=== PATIENT | female | born 1950 | race Caucasian/White ===

== ENCOUNTER 2016-05-06 13:42 | Day surgery (SDC) | payer MEDICARE, OTHER ==
[2016-04-28 16:29] LABS: BUN (BLOOD UREA NITROGEN) 19 MG/DL (6-23); CALCIUM, SERUM 8.9 MG/DL (8.5-10.4); CHLORIDE, SERUM 107 MMOL/L (96-112); CO2 (CARBON DIOXIDE) 26 MMOL/L (24-34); CREATININE 0.68 MG/DL (0.55-1.02); GFR AFRICAN AMERICAN 104 ML/MIN (>=60); GFR NON AFRICAN AMERICAN 90 ML/MIN (>=60); GLUCOSE, SERUM 92 MG/DL (60-99); POTASSIUM, SERUM 4.7 MMOL/L (3.5-5.3); SODIUM, SERUM 144 MMOL/L (135-148)
[2016-04-28 16:34] LABS: BASOPHILS 1.3 %; BASOPHILS ABSOLUTE 0.11 10/3/uL (0.0-0.16); EOSINOPHILS 2.4 %; HEMATOCRIT 42.8 % (36.0-48.0); IMMATURE GRANULOCYTES 0.1 %; IMMATURE GRANULOCYTES ABSOLUTE 0.01 10/3/uL (0.0-0.11); LYMPHOCYTES 23.6 %; LYMPHOCYTES ABSOLUTE 2.01 10/3/uL (0.67-4.30); MANUAL DIFF NO %; MEAN CORPUS HGB CONC 32.7 g/dL (32.0-36.0); MEAN CORPUSCULAR HEMOGLOB 30.2 pg (26.0-34.0); MEAN CORPUSCULAR VOLUME 92.4 fL (80-100); MEAN PLATELET VOLUME 9.9 fL (9.2-13.0); MONOCYTES 7.1 %; NEUTROPHILS 65.5 %; NEUTROPHILS ABSOLUTE 5.58 10/3/uL (2.02-8.40); PLATELET COUNT 359 10/3/uL (150-400); RED CELL COUNT 4.63 10/6/uL (4.0-5.6); WHITE BLOOD CELLS 8.5 10/3/uL (4.5-10.5)
--- NOTE | ~2016-05-06 | OP ---
Record Of Operation [facility] [address] [place]. [address] NAME: FORD SWAN : 46 STATUS : [facility]#: [id number] AGE: 66 ADM/REG DATE : 05/06/16 MR#: [id number] REPORT SERV DATE: 05/07/16 DICTATED BY: STACI LAU DATE: 05/06/16 REPORT STATUS : Draft TRANSCRIBED BY: MODL DATE: 05/06/16 DATE OF PROCEDURE: 05/06/2016 PREOPERATIVE DIAGNOSIS: Bladder tumor. POSTOPERATIVE DIAGNOSIS: Bladder tumor. PROCEDURE PERFORMED: 1. Transurethral resection of bladder tumor (2 cm). 2. Intraoperative instillation of mitomycin C (40 mg diluted in 20 mL). SURGEON: Staci Lau M.D. ANESTHESIA: General. DRAINS: Clay catheter. SPECIMEN: Posterior wall bladder tumor. INDICATION: Ms. Swan is a 66-year-old smoker with several months of intermittent gross hematuria. Office CT scan showed no renal mass, hydronephrosis, or adenopathy. Office cystoscopy showed a 2 cm posterior wall nodule suspicious for high-grade bladder tumor. TECHNIQUE: Informed consent was obtained, received Levaquin perioperatively. She was brought to the operating room. General anesthesia was administered. Genitals and perineum were prepped and draped in the lithotomy position in sterile fashion. Rigid cystoscopy was performed. The urethra was normal. There was a solitary approximately 2 cm papillary sessile nodular tumor on the posterior bladder wall situated at the midline. No other lesions were seen within the bladder. There was mild erythema of the urothelium adjacent to this nodular tumor. The cystoscope was removed. Glycine was used for irrigation. I placed a 24-Comoran resectoscope transurethrally after surgical resection of this tumor was performed down to the level of the detrusor. It is on the high posterior bladder wall resection was difficult. The bed of the resection was sampled using a rigid biopsy forceps to obtain underlying muscle. I then reinserted the resectoscope, a rollerball was utilized to fulgurate the bed of resection. The bladder was drained. Hemostasis was confirmed under low filling pressures. I placed an 18-Comoran Clay catheter and instilled 40 mg of mitomycin C diluted in 20 mL of normal saline. The catheter was plugged. Instillation time was 1830. She will have this for a 1-hour postop dwell time. The B and O suppository was given. She was extubated and taken to the recovery room in satisfactory condition. I plan to leave the Clay catheter for 5 days postop. [facility]/GELA Staci Booth Record Of [address] [address] NAME: FORD SWAN : 46 STATUS : [facility] PAT#: [id number] AGE: 66 ADM/REG DATE : 05/06/16 MR#: [id number] REPORT SERV DATE: 05/07/16 DICTATED BY: STACI LAU DATE: 05/06/16 REPORT STATUS : Draft TRANSCRIBED BY: GELA DATE: 05/06/16 Mary Lau / [id number] CC: Mary Ortiz M.D.
[~2016-05-06 13:42] MED LIST: AMB10 PO; ASAB PO; COZAAR100 MG PO; HYGROTON 25 MG25 MG OR; LISINOPRIL40 MG PO; MOTRIN IB200 MG PO; NITROSTAT0.4 MG SL; PRAVACHOL80 MG PO; TOPXL25 PO; VITAMIN D31000 UNIT PO
== END 2016-05-06 22:13 | disposition home or self-care (01) ==
LOC: SDC 13:42
PROVIDERS: Urology
PROC: 3E0K8GC Introduction of Other Therapeutic Substance into Genitourinary Tract, Via Natural or Artificial Opening Endoscopic (ICD-10-PCS; 2016-05-06)
PROC: 0TBB8ZZ Excision of Bladder, Via Natural or Artificial Opening Endoscopic (ICD-10-PCS; principal; 2016-05-06 15:30)
DX: C67.4 Malignant neoplasm of posterior wall of bladder (principal); I10 Essential (primary) hypertension; E78.00 Pure hypercholesterolemia, unspecified; M19.90 Unspecified osteoarthritis, unspecified site; F17.210 Nicotine dependence, cigarettes, uncomplicated; Z90.710 Acquired absence of both cervix and uterus; Z98.890 Other specified postprocedural states; Z88.0 Allergy status to penicillin; Z88.1 Allergy status to other antibiotic agents; Z88.5 Allergy status to narcotic agent; Z79.82 Long term (current) use of aspirin; Z79.899 Other long term (current) drug therapy; Z90.49 Acquired absence of other specified parts of digestive tract; Z98.82 Breast implant status
CPT/HCPCS: 36415; 80048; 85025; 88307; 88341; 88342; 93005; A9270-GY; J1956; J2250; J2405; J2710; J3010; J9280